=== PATIENT | female | born 1960 | race Caucasian/White ===

== ENCOUNTER → 2016-08-06 | Outpatient (CLI) | payer OTHER ==
[~2016-08-06] MED LIST: ESTR0.62 PO; LANS15CA66 PO; NORT75CA PO; SIMV10TA3 PO; TRAM50TA PO
[2016-08-06] MEDS: GADOBUTROL 7.5 MMOL/7.5 ML VIAL IV ONE (14:32)
--- NOTE | 2016-08-06 16:03 | KCIC ---
PROCEDURE MRI of the cervical spine without and with contrast 08/06/2016 HISTORY Chronic neck pain which radiates down the right shoulder worsening over the last 8 months. TECHNIQUE Unenhanced T1 weighted, T2 weighted and inversion recovery sagittal and gradient echo, T2 weighted and T1 weighted axial images of the cervical spine were obtained. After the intravenous administration 7 cc of Gadavist, enhanced T1 weighted sagittal and axial images of the cervical spine were obtained. FINDINGS Minimal lateral curvature of the cervical spine is seen convex to the right. There is straightening of the normal cervical lordosis. Degenerative signal changes and loss of height are seen involving the C5-6 and C6-7 discs. Degenerative signal changes are seen within the marrow surrounding these discs. No area of abnormal signal intensity is seen involving the cervical spinal cord. No abnormal area of contrast enhancement is seen. At the C2-3, C3-4, C4-5 and C5-6 disc spaces there are minimal to mild generalized disc bulges. Degenerative changes are seen involving the uncovertebral and facet joints bilaterally. These findings do not result in significant central spinal canal or neural foraminal stenosis. At the C6-7 disc space there is a mild generalized disc bulge. Superimposed on this disc bulge is a right paracentral disc osteophyte complex. This measures 5 millimeters in AP diameter. Degenerative changes are seen involving the uncovertebral and facet joints, right greater than left. These findings when combined result in mild right greater than left central spinal canal stenosis without evidence of cord impingement. Mild right neural foraminal stenosis is seen. The left neural foramina is patent. At the C7-T1 disc space there is a minimal generalized disc bulge. This does not result in significant central spinal canal or neural foraminal stenosis. IMPRESSION Degenerative changes are seen throughout the cervical spine. These findings result in mild right greater than left central spinal canal stenosis without cord impingement and mild right neural foraminal stenosis at C6-7. Electronically signed by: Wilfredo Luu MD (Aug 06, 2016 16:02:12)
== END | disposition home or self-care (01) ==
LOC: KCIC MRI 13:47
PROVIDERS: ATTEND Nurse Practitioner Family
DX: M50.30 Other cervical disc degeneration, unspecified cervical region (principal); M48.02 Spinal stenosis, cervical region
CPT/HCPCS: 72156; A9585

== ENCOUNTER → 2016-08-06 | Outpatient (CLI) | payer OTHER ==
--- NOTE | 2016-08-06 15:24 | KCIC ---
Examination: Ultrasound thyroid. HISTORY History of enlarged thyroid gland. COMPARISON None available. Findings. The right lobe of thyroid measures 4.2 x 1.0 x 1.8 centimeters. The left lobe of thyroid gland 3.2 x 0.9 x 0.9 centimeters. The isthmus measures 3.2 millimeters in AP dimension. The echogenicity of the thyroid gland grossly appears unremarkable. Normal-appearing blood flow identified in to the right and left lobe of the thyroid gland. Submandibular lymph node identified in the left measuring 2.7 centimeters with normal appearing hilum. IMPRESSION Unremarkable visualized exam. Electronically signed by: Raheem Quintana (Aug 06, 2016 15:22:48)
== END | disposition home or self-care (01) ==
LOC: KCIC US 13:42
PROVIDERS: ATTEND Family Medicine
DX: E04.9 Nontoxic goiter, unspecified (principal); M50.30 Other cervical disc degeneration, unspecified cervical region
CPT/HCPCS: 76536

== ENCOUNTER → 2016-09-16 | Outpatient (CLI) | payer OTHER ==
[~2016-09-16] MED LIST changes: +ASPI1TAB30 PO; +LISI10TA2 PO; +LORA10TA68 PO; +NIAC1000 PO; +PANT20TA2 PO; +SUMA50TA3 PO; +TIZA4CAP3 PO
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
== END | disposition home or self-care (01) ==
LOC: PNCL 10:24
PROVIDERS: ATTEND Anesthesiology
DX: M54.2 Cervicalgia (principal); M25.511 Pain in right shoulder
CPT/HCPCS: 99214

== ENCOUNTER → 2016-09-30 | Outpatient (CLI) | payer OTHER ==
[~2016-09-30] MED LIST changes: +IOHEXOL 180 MG/ML 10 ML VIAL. ONE; +methylPREDNISolone ACETATE 40 MG/ML VIAL. ONE; +methylPREDNISolone ACETATE 80 MG/ML VIAL. ONE
--- NOTE | 2016-09-30 16:50 | PN ---
DATE: 09/30/2016 DIAGNOSES: Cervical radiculopathy with cervical spinal stenosis and cervical degenerative disk disease. HISTORY OF PRESENT ILLNESS: The patient is a 56-year-old female who returns for followup status post initial evaluation and preauthorization for cervical epidural steroid injection. The patient returns today for injection, reports still significant pain in the base of the neck and right upper extremity. She had previously no significant change. We tried Medrol Dosepak, which helped while she was taking it by about 30%-40%, but now the pain has returned. The patient reports no new motor or sensory deficits, no other complaints. The patient reports pain in the base of the neck, right upper extremity as it was previously. The patient reports pain ranging from 2-8 on a scale of 10, 8 with activity, standing, walking, using her upper extremity reaching overhead, 2 with resting or letting the arm hanging at the side. The patient reports no other changes. PHYSICAL EXAMINATION: VITAL SIGNS: The patient's blood pressure is 139/79, pulse 91, respirations are 18, temperature is 98.1 degrees Fahrenheit. Height is 5 feet 7 inches, weighs 185 pounds. GENERAL: The patient is awake, alert, oriented, appropriate, very pleasant demeanor. HEENT: Head shows normocephalic, atraumatic. Extraocular movements are intact and symmetrical. Oral cavity, mucous membranes are moist and pink. Dentition is intact. NECK: Shows anterior throat supple without palpable lymphadenopathy noted. Swallow reflex is symmetrical. CHEST: Shows normal on inspection. Breath sounds clear to auscultation bilaterally. HEART: Shows S1 and S2 clear. ABDOMEN: Soft, nontender, and nondistended. No palpable organomegaly is noted. BACK: Shows spine grossly midline. Cervical spine shows normal cervical lordotic curvature. Paraspinous musculature in the cervical distribution is moderately tender to palpation both in the right and left distribution in the inferior aspect of cervical paraspinous muscles and in the right superior medial trapezius musculature, also into the right lateral trapezius. The patient has good rotational motion of cervical spine with extension and flexion. Right and left lateral rotation without significant pain reported. EXTREMITIES: Upper extremities showed deep tendon reflexes 2+ in the biceps and triceps tendons. Motor exam is strong with approximately 4 on a scale of 5 with right barrel scraper and 5/5 with left barrel scraper. Options were discussed with the patient and the patient's old chart was reviewed as her current medication regimen updated. Current review of systems updated today as well. We will proceed with a cervical epidural steroid injection today with fluoroscopic guidance. Risks were discussed including but not limited to bleeding, infection, possibility of epidural hematoma and subsequent neurologic compromise, dural puncture, headaches, spinal cord and/or nerve damage, side effects of steroid medication and poor results regarding pain control. The patient understands and wishes to proceed. The patient will return to clinic in approximately 2 weeks for followup, and was counseled on return appointment and activity level and side effects to be aware of. DIAGNOSIS: Cervical radiculopathy with cervical spinal stenosis and cervical degenerative disk disease. PROCEDURE: Cervical epidural steroid injection using C-arm fluoroscopic guidance in translaminar approach at C6-C7 level using local anesthetic and a sterile prep and drape. MEDICATIONS INJECTED: Depo-Medrol 120 mg plus 5 mL preservative-free normal saline and 2 mL Isovue for contrast. CONDITION AT DISCHARGE: Stable. The patient tolerated procedure well, had no complications. AYSHA MONGE MD DR: DANILO/carlos JOB#: [id number] / [id number]
== END | disposition home or self-care (01) ==
LOC: PNCL 08:48
PROVIDERS: ATTEND Anesthesiology
DX: M50.123 Cervical disc disorder at C6-C7 level with radiculopathy (principal); M48.02 Spinal stenosis, cervical region
CPT/HCPCS: 62321; J1030; J1040

== ENCOUNTER → 2016-10-14 | Outpatient (CLI) | payer OTHER ==
--- NOTE | 2016-10-15 07:48 | PAIN ---
DATE OF SERVICE: 10/14/2016 PROGRESS NOTE FOR PAIN CLINIC DIAGNOSIS: Cervical radiculopathy with cervical degenerative disk disease and cervical spinal stenosis. HISTORY OF PRESENT ILLNESS: The patient is a 56-year-old female who returns for followup status post cervical epidural steroid injection x 1. The patient reports about 40% improvement with increased ability to use her right upper extremity and shoulder with much greater ease and comfort. She has been doing much better, still with some aching tight cramping and constant pain in the base of the shoulder and neck on the right side with radiation into the medial upper aspect of the right arm, but with much less intensity than it was previously. The patient reports she is still sleeping fairly well at night. She has to reposition a few times, but is sleeping 5-6 hours without interruption secondary to the pain. The patient reports no new motor or sensory deficits, no new bowel or bladder incontinence or other complaints. PHYSICAL EXAMINATION: VITAL SIGNS: The patient's blood pressure is ____, pulse 107, respirations are 18, temperature 98.0 degrees Fahrenheit. Height is 5 feet 7 inches, weight is 184 pounds. GENERAL: The patient is awake, alert, oriented, appropriate, has a very pleasant demeanor. HEENT: Shows normocephalic, atraumatic. Extraocular movements are intact, symmetrical. Oral cavity shows mucous membranes moist and pink. Dentition is intact. NECK: Shows anterior throat supple without palpable lymphadenopathy noted. Swallow reflex is symmetrical. CHEST: Shows normal on inspection. Breath sounds are clear to auscultation bilaterally. HEART: Shows S1 and S2 clear. No murmurs auscultated. ABDOMEN: Soft, nontender, nondistended. No palpable organomegaly is noted. No rebound or guarding demonstrated. BACK: Shows spine grossly in the midline. Cervical paraspinous muscles show some mild tenderness with palpation only in the inferior aspect of the cervical paraspinous muscles bilaterally. The patient shows good rotational motion of the cervical spine without tenderness or difficulty, good extension and flexion as well as right and left lateral rotation past 45 degrees, closer to 90 degrees, right and left without ____. EXTREMITIES: Upper extremities show deep tendon reflexes at 2+ in the biceps and triceps tendons. Motor exam is approximately 4 on a scale of 5 with right-sided biceps and triceps flexion and 5/5 on the left. PLAN: Options were discussed with the patient and the patient's old chart was reviewed as was her current medication regimen and updated. Current review of systems updated today as well. We will proceed with a second cervical epidural steroid injection today with fluoroscopic guidance. Risks were again discussed including, but not limited to bleeding, infection, possibility of epidural hematoma, subsequent neurological compromise, dural puncture, headaches, spinal cord and/or nerve damage, side effects of steroid medication and poor results regarding pain control. The patient understands and wishes to proceed. The patient will return to clinic in approximately 2 weeks for followup, was counseled as to return appointment, activity level and side effects to be aware of. DIAGNOSIS: Cervical radiculopathy with cervical spinal stenosis and cervical degenerative disk disease. PROCEDURE: Cervical epidural steroid injection in a translaminar approach at the C6-C7 level using C-arm fluoroscopic guidance under sterile prep and drape using local anesthetic. MEDICATIONS INJECTED: 120 mg Depo-Medrol plus 5 mL preservative-free normal saline and 2 mL Isovue for contrast. CONDITION AT DISCHARGE: Stable. The patient tolerated the procedure well, had no complications. AYSHA MONGE MD DR: DANILO/carlos JOB#: [id number] / [id number]
== END | disposition home or self-care (01) ==
LOC: PNCL 09:29
PROVIDERS: ATTEND Anesthesiology
DX: M50.123 Cervical disc disorder at C6-C7 level with radiculopathy (principal); M48.02 Spinal stenosis, cervical region
CPT/HCPCS: 62321; J1030; J1040

== ENCOUNTER → 2017-01-19 | Outpatient (CLI) | payer OTHER ==
[~2017-01-19] MED LIST changes: -IOHEXOL 180 MG/ML 10 ML VIAL. ONE; -LANS15CA66 PO; +LANS15CA78 PO; -methylPREDNISolone ACETATE 40 MG/ML VIAL. ONE; -methylPREDNISolone ACETATE 80 MG/ML VIAL. ONE
--- NOTE | 2017-01-20 09:02 | RAD ---
DATE: 01/19/2017 EXAM: MAMMO MAGGY SCREENING BILATERAL HISTORY: Routine screening COMPARISON: 09/04/2015 The breast parenchyma is dense, which could reduce the sensitivity of mammography. Breast parenchyma level density D. FINDINGS: 2-D and 3-D tomosynthesis imaging was performed in CC and MLO projections. There is an unchanged benign-appearing nodule projected over the posterior aspect of the breast on the oblique view. No new or enlarging breast densities are seen. Benign type calcifications are present. No suspicious microcalcifications have developed. Benign-appearing lymph node type densities are present in both axillary regions. IMPRESSION: Stable mammograms without evidence of malignancy. BI-RADS CATEGORY: 2 BENIGN FINDING(S) RECOMMENDED FOLLOW-UP: 12M 12 MONTH FOLLOW-UP PQRS compliance statement: Patient information was entered into a reminder system with a target due date for the next mammogram. Mammography is a sensitive method for finding small breast cancers, but it does not detect them all and is not a substitute for careful clinical examination. A negative mammogram does not negate a clinically suspicious finding and should not result in delay in biopsying a clinically suspicious abnormality. "Our facility is accredited by the [employer] Mammography Program."
== END | disposition home or self-care (01) ==
LOC: KCIC MAMMO 13:47
PROVIDERS: ATTEND Obstetrics & Gynecology
DX: Z12.31 Encounter for screening mammogram for malignant neoplasm of breast (principal)
CPT/HCPCS: 77063; G0202; 77067

== ENCOUNTER → 2018-01-26 | Outpatient (CLI) | payer OTHER | END | disposition home or self-care (01) | LOC: KCIC MAMMO 13:51 | DX: Z12.31 Encounter for screening mammogram for malignant neoplasm of breast (principal) | CPT/HCPCS: 77063; 77067 ==

== ENCOUNTER → 2018-10-02 | Outpatient (CLI) | payer OTHER ==
[~2018-10-02] MED LIST changes: -ASPI1TAB30 PO; +ASPI1TAB31 PO; +LANS30CA66 PO; +MULT1TAB52 PO
--- NOTE | 2018-10-02 11:38 | KCIC ---
MRI Cervical Spine Without Contrast History: Cervical stenosis with progressive middle and upper back pain, pain into the right arm Technique: Multiplanar, multi sequential noncontrast MR imaging was performed of the cervical spine. Comparison: 08/06/2016 Findings: There is mild motion degradation. Cervical cord caliber is within normal limits without new focal signal abnormality. Cervical vertebral body stature is maintained. There is again negligible anterior spondylolisthesis C3-C4 and C4-C5. There is again moderate degenerative disc disease at C5-6 and C6-7. There is no significant marrow edema. C2-C3: Spinal canal and neural foramina are adequate. C3-C4: There is fairly severe right and mild to moderate left facet degenerative change. There is negligible disc osteophyte complex. Central canal is adequate about 14 mm. Left neural foramen is adequate, again [id number] narrowing of the right neural foramen. C4-C5: Spinal canal and the neural foramina are adequate. There is fairly severe facet degenerative change bilaterally. C5-C6: There is minimal disc osteophyte complex and bulge, again more eccentric to the far left lateral recess. Central canal is adequate about 11 to 12 mm. There is again bilateral facet degenerative change, also left uncovertebral degenerative change. Neural foramina are overall adequate. C6-C7: There is again disc osteophyte complex and superimposed bulge/protrusion more eccentric to the right lateral recess. Central canal is narrowed to about 8 to 9 mm, also mild to moderate right lateral recess stenosis as seen previously with focal effacement of right ventral subarachnoid space and contact of the right ventral cord unchanged. There is bilateral uncovertebral and facet degenerative change. There is [id number] neural foramina compromise bilaterally greater on the left as seen previously. C7-T1: Spinal canal and neural foramina are adequate. There is facet degenerative change bilaterally. Impression: 1. Findings are similar comparing with the 2017 exam. There is again central canal stenosis on the order of 8 to 9 mm at C6-7 with greater degree of right lateral recess stenosis at this level. 2. There is multilevel facet and uncovertebral degenerative change contributing to neural foramina compromise as stated greatest on the right at C3-C4 and left greater than right at C6-7. 3. There is again moderate degenerative disc disease at C5-6 and C6-7. 4. There is again negligible anterior spondylolisthesis C3-4 and C4-5. Electronically signed by: Marcel Banks MD (10/02/2018 11:35 AM) [email or web address]
== END | disposition home or self-care (01) ==
LOC: KCIC MRI 10:51
PROVIDERS: ATTEND Family Medicine
DX: M48.02 Spinal stenosis, cervical region (principal); M43.12 Spondylolisthesis, cervical region; M50.323 Other cervical disc degeneration at C6-C7 level; M50.223 Other cervical disc displacement at C6-C7 level; M47.813 Spondylosis without myelopathy or radiculopathy, cervicothoracic region; M25.78 Osteophyte, vertebrae
CPT/HCPCS: 72141

== ENCOUNTER → 2018-10-17 | Outpatient (CLI) | payer OTHER ==
--- NOTE | 2018-10-18 04:07 | PAIN ---
DATE OF SERVICE: 10/17/2018 DIAGNOSES: Cervical radiculopathy with cervical spinal stenosis and cervical degenerative disk disease. HISTORY OF PRESENT ILLNESS: The patient is a 58-year-old female who returns for followup status post cervical epidural steroid injection about 2 years ago. The patient reports she did very well with 75% plus improvement until the past few weeks. 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 The patient reports it is worse with reaching overhead with her right hand, reaching forward, also reaching posteriorly as she is putting on a jacket sleeve. The patient reports the pain is much more noticeable with lifting items as well. The patient reports some minor pain in the left shoulder, but mostly in the right side radiating to the right upper extremity in a radicular fashion as noted. The patient reports it is stabbing, shooting, throbbing, intermittent in intensity, but always present, changes during the day, worse with activity, lifting, it is noted radiating to the right arm and hands, burning, cramping and aching pain in the neck itself also. The patient reports it awakens her from sleep at least once or twice a night, does not affect her bowel or bladder control, but does affect her ability. She notes the pain with walking in the neck and shoulder on the right side with swinging her arm. The patient has had physical therapy, chiropractic treatment, exercise. She is continuing to do exercise, which she has done since 2009 and has had physical therapy exercises that she has been doing for over the past 2 years and continues to do these daily with some decrease in pain, but only minimally. The patient reports no full loss of motor function, but significant fatigability of the right upper extremity with any repetitive motions or lifting items on the right side. PAST MEDICAL HISTORY: Significant for hypertension, dizziness, headaches, arthritis. PREVIOUS SURGERY: Hysterectomy as well as a breast biopsy and a sinus surgery, also appendectomy. CURRENT MEDICATIONS: Include Premarin, lisinopril, Claritin, Prevacid, Excedrin, Imitrex, simvastatin, Zanaflex, nortriptyline and vitamins. ALLERGIES: THE PATIENT IS ALLERGIC TO PENICILLIN. PHYSICAL EXAMINATION: VITAL SIGNS: The patient's blood pressure is 146/91, pulse 94, respirations 18, temperature 98.0 degrees Fahrenheit, height is 5 feet 7 inches and weight is 178 pounds. GENERAL: The patient is awake, alert, oriented, appropriate, very pleasant demeanor. HEENT: Head is normocephalic, atraumatic. Extraocular movements are intact, symmetrical. Oral cavity: Mucous membranes moist and pink. Dentition is intact. NECK: Shows anterior throat supple without palpable lymphadenopathy noted. Swallow reflex symmetrical. CHEST: Shows normal with inspection. Breath sounds clear to auscultation bilaterally. HEART: Shows S1, S2 clear. No murmurs auscultated. ABDOMEN: Soft, nontender, nondistended. No palpable organomegaly is noted. No rebound or guarding demonstrated. BACK: Shows cervical lordotic curvature normal in appearance as is thoracic kyphotic curvature. Cervical paraspinous muscle shows symmetrical on inspection and on palpation shows some moderate tenderness diffusely in the inferior aspect of the cervical paraspinous muscles, more on the right than the left, but present bilaterally and into the superior medial trapezius, more tender on the right than the left, but again without significant radiation, without trigger points, without asymmetry, atrophy or hypertrophy. The patient has good rotational motion of cervical spine, both laterally greater than 45 degrees, closer to 90 degrees right and left as well as extension greater than 45 degrees and forward flexion, chin to chest performed fully with only some minor tenderness with forward flexion in the right base of the neck and shoulder. EXTREMITIES: The patient's upper extremities show deep tendon reflexes at 2+ in the biceps, triceps tendons. Motor exam is approximately 4 on a scale of 5 with right sales estimator strength, bicep and tricep flexion and 5/5 on the left. Peripheral pulses are 2+ radial distribution. No peripheral edema is noted. Shoulder shrug is strong and intact bilaterally without loss of strength on resistance, but with fairly significant pain with resistance on the right side only, but not the left. This is true with abduction of shoulder to 90 degrees with some pain reported with resistance on the right, but not on the left, but again without loss of strength on resistance. Peripheral pulses are 2+ radial distribution. No peripheral edema is noted bilaterally. Options were discussed with the patient. The patient's old chart was reviewed as her current medication regimen updated. Current review of systems updated today as well. We will preauthorize the patient for cervical epidural steroid injection as there is clear radiculopathy in the C6-C7 dermatomal distribution on the right with MRI scan performed 10/02/2018 showing again C6-C7 disk bulge eccentric to the right lateral recess with bulge protrusion with central canal narrowed to 8-9 mm, also with mild to moderate right lateral recess stenosis. The patient will continue with her exercises as she is doing daily and stretching and strengthening as well. We will follow up for translaminar C6-C7 level cervical epidural steroid injection for her C6-C7 right-sided cervical radiculopathy as she has done very well with these in the past. The patient will follow up as scheduled. AYSHA MONGE MD DR: DANILO/carlos JOB#: [id number] / [id number] Yamilex Delaney MD
== END | disposition home or self-care (01) ==
LOC: PNCL 12:06
PROVIDERS: ATTEND Anesthesiology
DX: M50.10 Cervical disc disorder with radiculopathy, unspecified cervical region (principal); M48.02 Spinal stenosis, cervical region; I10 Essential (primary) hypertension; M19.90 Unspecified osteoarthritis, unspecified site; Z79.899 Other long term (current) drug therapy; Z88.0 Allergy status to penicillin; Z90.710 Acquired absence of both cervix and uterus; Z90.89 Acquired absence of other organs
CPT/HCPCS: G0463

== ENCOUNTER → 2018-10-31 | Outpatient (CLI) | payer OTHER ==
[~2018-10-31] MED LIST changes: +IOHEXOL 180 MG/ML 10 ML VIAL. ONE; +methylPREDNISolone ACETATE 40 MG/ML VIAL. ONE; +methylPREDNISolone ACETATE 80 MG/ML VIAL. ONE
--- NOTE | 2018-11-01 02:40 | PAIN ---
DATE OF SERVICE: 10/31/2018 PROGRESS NOTE FOR PAIN CLINIC DIAGNOSES: Cervical radiculopathy with cervical radiculopathy with cervical spinal stenosis and cervical degenerative disk disease. HISTORY OF PRESENT ILLNESS: The patient is a 58-year-old female who returns for followup status post initial evaluation and preauthorization for cervical epidural steroid injection. The patient has achieved this and would like to proceed. We will proceed with a cervical epidural steroid injection today. The patient reports still significant pain in the base of the neck and right greater than left upper extremity with pain radiating to both the arms, more on the right side than the left. The patient reports no new motor or sensory deficits or other complaints, still significant pain in the base of neck and right shoulder but some in the left and also with some tingling in the left hand. The patient reports the pain is aching and tight, burning, cramping and becoming more radiating and more constant over time. The patient reports it is a 7 on a scale of 10 over the past week, 4 at the average and a 2 at its least and is a 4 today. The patient reports no new changes. No new motor loss or other complaints but does awaken her from sleep occasionally when she sleeps on her right side. PHYSICAL EXAMINATION: VITAL SIGNS: The patient's blood pressure is 138/72, pulse is 77, respirations 16 and temperature 98.2 degrees Fahrenheit. Height is 5 feet 7 inches and weighs 182 pounds. GENERAL: The patient is awake, alert, oriented, appropriate and very pleasant demeanor. HEENT: Head shows normocephalic and atraumatic. Extraocular movements are intact and symmetrical. Oral cavity, mucous membranes are moist and pink. Dentition is intact. NECK: Shows anterior throat supple without palpable lymphadenopathy noted. Swallow reflex symmetrical. CHEST: Shows normal on inspection. Breath sounds clear to auscultation bilaterally. HEART: Shows S1 and S2 clear. No murmurs auscultated. ABDOMEN: Soft, nontender and nondistended. No palpable organomegaly is noted. No rebound or guarding demonstrated. BACK: Shows spine grossly in the midline. The patient's neck shows good rotational motion of the cervical spine, both laterally greater than 45 degrees, right and left as well as full extension, full forward flexion without significant increase in pain. Posterior cervical paraspinous musculature shows symmetrical on inspection, on palpation shows some moderate tenderness, but only diffusely in the middle and lower distribution of the paraspinous muscles but without radiation. No trigger points. No atrophy or hypertrophy. EXTREMITIES: The patient's upper extremities show deep tendon reflexes at 2+ in the biceps and triceps tendons. Motor exam is strong with approximately 4 on a scale of 5 with right gameplay programmer strength and 5/5 on the left. Peripheral pulses are 2+ radial distribution. No peripheral edema is noted bilaterally. Options were discussed with the patient. The patient's old chart was reviewed as well as her current medication regimen updated. Current review of systems updated today as well. We will proceed with a cervical epidural steroid injection today, the first in this series. Risks were again discussed including, but not limited to bleeding, infection, possibility of epidural hematoma, subsequent neurological compromise, dural puncture, headaches, spinal cord and/or nerve damage, side effects of steroid medication and poor results regarding pain control. The patient understands and wished to proceed. The patient will return to the clinic in approximately 2 weeks for followup, was counseled as to return appointment, activity level and side effects to be aware of. DIAGNOSES: Cervical radiculopathy with cervical spinal stenosis and cervical degenerative disk disease. PROCEDURE: Cervical epidural steroid injection, translaminar approach, C6-C7 level using C-arm fluoroscopic guidance under sterile prep and drape using local anesthetic. MEDICATION INJECTED: A total of 120 mg Depo-Medrol plus 10 mL of preservative-free normal saline and 2 mL of Isovue for contrast. CONDITION AT DISCHARGE: Stable. The patient tolerated the procedure well and had no complications. AYSHA MONGE MD DR: DANILO/carlos JOB#: [id number] / [id number]
== END | disposition home or self-care (01) ==
LOC: PNCL 13:42
PROVIDERS: ATTEND Anesthesiology
DX: M50.123 Cervical disc disorder at C6-C7 level with radiculopathy (principal); M48.02 Spinal stenosis, cervical region; Z88.0 Allergy status to penicillin
CPT/HCPCS: 62321; J1030; J1040; Q9965

== ENCOUNTER → 2018-11-28 | Outpatient (CLI) | payer OTHER ==
--- NOTE | 2018-11-28 12:50 | PAIN ---
DATE OF SERVICE: 11/28/2018 PROGRESS NOTE FOR PAIN CLINIC DIAGNOSES: Cervical radiculopathy with cervical spinal stenosis and cervical degenerative disk disease. HISTORY OF PRESENT ILLNESS: The patient is a 58-year-old female who returns for followup status post cervical epidural steroid injection x 1 with about 60% improvement overall with pain in the neck and right upper extremity. The patient reports no new motor or sensory deficits and no new changes, still increased the pain. She was initially increasing in her distance walking and doing activities at home using her arms, more repetitive motions with better ease and comfort. The patient reports now the pain is returning. She is having difficult time getting comfortable and it is hard to sleep at night because of this. The patient reports pain on a scale of 10 over the past week, 3 on average and a 2 at its least and is a 3 today. The patient reports it is aching and tight, burning, cramping in the neck and shoulders, more on the right side than the left, mostly in the posterior scapular region. The patient reports no new motor or sensory deficits and no new changes but still pain as previously. The patient has had preauthorization for a second cervical epidural steroid injection today and would like to proceed with that. PHYSICAL EXAMINATION: VITAL SIGNS: The patient's blood pressure is 154/87, pulse 96, respirations 18 and temperature is 97.8 degrees Fahrenheit. Weight is 181 pounds. GENERAL: The patient is awake, alert, oriented, appropriate and very pleasant demeanor. HEENT: Head shows normocephalic and atraumatic. Extraocular movements are intact and symmetrical. Oral cavity, mucous membranes are moist and pink. Dentition is intact. NECK: Shows anterior throat supple without palpable lymphadenopathy noted. Swallow reflex is symmetrical. CHEST: Shows normal on inspection. Breath sounds clear bilaterally. HEART: Shows S1 and S2 clear. ABDOMEN: Soft, nontender and nondistended. BACK: Shows spine grossly in the midline. Cervical lordotic curvature shows normal curvature. Cervical paraspinous musculature shows normal on inspection, with palpation shows some moderate tenderness diffusely bilaterally but only diffusely without radiation. The patient has good rotational motion of the cervical spine, both laterally as well as extension and flexion without significant increase in the pain. EXTREMITIES: Upper extremities show deep tendon reflex is 2+ in the left biceps and triceps tendons. Motor exam is approximately 4 on a scale 5 on the right with seam taper machine strength and 5/5 on the left with seam taper machine strength. Biceps and triceps flexion likewise 4/5 on the right and 5/5 on the left. Peripheral pulses are 2+ radial distribution. No peripheral edema is noted bilaterally. Options were discussed with the patient. The patient's old chart was reviewed as well as her current medication regimen updated. Current review of systems updated today as well. We will proceed with a second in the series of cervical epidural steroid injection today with fluoroscopic guidance. Risks were again discussed including, but not limited to bleeding, infection, possibility of epidural hematoma, subsequent neurologic compromise, dural puncture, headaches, spinal cord and/or nerve damage, side effects of steroid medication and poor results regarding pain control. The patient understands and wished to proceed. The patient will return to the clinic in approximately 2 weeks for followup, was counseled as to return appointment, activity level and side effects to be aware of. DIAGNOSES: Cervical radiculopathy with cervical spinal stenosis and cervical degenerative disk disease. PROCEDURE: Cervical epidural steroid injection, translaminar approach, C6-C7 level using C-arm fluoroscopic guidance under sterile prep and drape using local anesthetic. MEDICATION INJECTED: A total of 120 mg Depo-Medrol plus 5 mL of preservative-free normal saline and 2 mL of contrast. CONDITION AT DISCHARGE: Stable. The patient tolerated the procedure well and had no complications. AYSHA MONGE MD DR: DANILO/carlos JOB#: [id number] / [id number]
== END ==
LOC: PNCL 09:57
PROVIDERS: ATTEND Anesthesiology
DX: M50.123 Cervical disc disorder at C6-C7 level with radiculopathy (principal); M48.02 Spinal stenosis, cervical region
CPT/HCPCS: 62321; J1030; J1040; Q9965

== ENCOUNTER → 2018-12-12 | Outpatient (CLI) | payer OTHER ==
[~2018-12-12] MED LIST changes: -IOHEXOL 180 MG/ML 10 ML VIAL. ONE; -methylPREDNISolone ACETATE 40 MG/ML VIAL. ONE; -methylPREDNISolone ACETATE 80 MG/ML VIAL. ONE
--- NOTE | 2018-12-12 11:14 | PAIN ---
DATE OF SERVICE: 12/12/2018 PROGRESS NOTE FOR PAIN CLINIC DIAGNOSES: Cervical radiculopathy with cervical spinal stenosis and cervical degenerative disk disease. HISTORY OF PRESENT ILLNESS: The patient is a 58-year-old female who returns for followup status post cervical epidural steroid injection x 2. The patient reports doing very well with about 80% improvement overall. She is increasing her activity with greater ease and comfort, has been increasing her activity with greater ability and traveling with ease and sleeping better at night as well. The patient reports still some pain in the base of the neck and right shoulder, right upper extremity radiating to the right arm, mostly in the posterior aspect of the deltoid, posterior triceps and into the forearm. The patient reports the pain is a 5 on a scale of 10 at its worst over the past week, 3 on average, 2 at its least and is a 2 today. The patient reports it is aching, burning and cramping at times. Left side is doing much better with the right side still persistent. The patient reports no loss of motor function and no new motor or sensory deficits or other complaints. PHYSICAL EXAMINATION: VITAL SIGNS: The patient's blood pressure 146/90, pulse 88, respirations 18, temperature 97.8 degrees Fahrenheit and weight is 136 pounds. GENERAL: The patient is awake, alert, oriented and appropriate. HEENT: Head shows normocephalic and atraumatic. Extraocular movements are intact and symmetrical. Oral cavity: Mucous membranes are moist and pink. Dentition is intact. NECK: Shows anterior throat supple without palpable lymphadenopathy noted. Swallow reflex symmetrical. CHEST: Shows normal on inspection. Breath sounds clear to auscultation bilaterally. HEART: Shows S1 and S2 clear. No murmurs auscultated. ABDOMEN: Soft, nontender and nondistended. No palpable organomegaly is noted. No rebound or guarding demonstrated. BACK: Shows spine grossly in the midline. Cervical lordotic curvature is maintained. Cervical paraspinous muscle shows symmetrical on inspection, on palpation shows some moderate tenderness, inferior aspect of the cervical paraspinous muscles, more on the right than the left but without asymmetry, without atrophy or hypertrophy, no trigger points. The patient has good rotational motion of the cervical spine, both laterally as well as extension and flexion without significant difficulty. EXTREMITIES: The patient's upper extremities show deep tendon reflexes 2+ in the biceps and triceps tendons. Motor exam is strong with approximately 4 on a scale 5 on the right and 5/5 on the left. Peripheral pulses are 1+ posterior tibia. No peripheral edema is noted bilaterally. Options were discussed with the patient. The patient's old chart was reviewed as well as her current medication regimen updated. Current review of systems updated today as well. We will preauthorize the patient for a third cervical epidural steroid injection with still clear clinical radicular symptoms in the C6-C7 dermatome distribution on the right but significantly improved after the last injection. We will plan on a C6-C7 translaminar epidural steroid injection on the patient's return. AYSHA MONGE MD DR: DANILO/carlos JOB#: [id number] / [id number]
== END | disposition home or self-care (01) ==
LOC: PNCL 09:07
PROVIDERS: ATTEND Anesthesiology
DX: M48.02 Spinal stenosis, cervical region (principal); M50.10 Cervical disc disorder with radiculopathy, unspecified cervical region
CPT/HCPCS: G0463